=== PATIENT | female | born 1975 | race Caucasian/White ===

== ENCOUNTER 2016-03-19 17:07 | Emergency (ER) | payer MEDICAID ==
[2016-03-19 17:16] VITALS: BP 104/73; PULSE 100; RESP 16; TEMP 98.2; O2SAT 94
--- NOTE | 2016-03-19 17:40 | EDPHY ---
H & P Time Seen by Provider: 03/19/16 17:19 HPI/ROS: CHIEF COMPLAINT: tooth pain HISTORY OF PRESENT ILLNESS: 40-year-old female presents emergency department complaining of right lower tooth pain. Patient states she was eating yesterday and her tooth broke. She reports ibuprofen is not helping. Patient states she has an appointment with [facility] in 4 days. No fevers or chills. Smoking Status: Heavy smoker Physical Exam: GEN: Awake, alert, oriented, no acute distress RESP: nl resp effort Poor dental hygiene, posterior bottom, 2nd from back, right-sided molar with crack, no evidence of abscess, no bleeding, no trismus, no facial swelling Constitutional: Initial Vital Signs Temperature (C) 36.8 C 03/19/16 17:14 Heart Rate 100 03/19/16 17:14 Respiratory Rate 16 03/19/16 17:14 Blood Pressure 104/73 03/19/16 17:14 O2 Sat (%) 94 03/19/16 17:14 O2 Delivery Mode Room Air Allergies/Adverse Reactions: Penicillins Allergy (Intermediate, Verified 03/19/16 17:12) Hives Home Medications: Medication Instructions Recorded Acyclovir [Zovirax] 800 mg PO 5XD #35 tab 08/26/15 Ambien 08/26/15 Ativan 08/26/15 [place] Carbonate 08/26/15 Potassium 08/26/15 Seroquel 08/26/15 risperiDONE 08/26/15 Clindamycin HCl [Clindamycin] 300 mg PO TID #30 cap 03/19/16 MDM/Departure - Depart Disposition: Home, Routine, Self-Care Clinical Impression: Broken tooth Qualifiers: Encounter type: initial encounter Fracture type: closed Qualifier Code: ( S02.5XXA) Fracture of tooth (traumatic), initial encounter for closed fracture Condition: Good Instructions: Toothache (ED), Clindamycin (By mouth), Hydrocodone/ Acetaminophen (By mouth) Additional Instructions: Take 600 mg of ibuprofen every 8 hours with food, take antibiotics as prescribed , take 1 [place] every 8 hours as needed for severe pain. Warm compresses to your face. Follow-up at [facility] at 1st available appointment. You will not be given any more pain medication in the emergency department. Stop smoking. Prescriptions: Clindamycin HCl [Clindamycin] 300 mg PO TID #30 cap Referrals: NONE *PRIMARY CARE P,. [Primary Care Provider] - As per Instructions
[2016-03-19] MEDS ORDERED: HYDROCOD/APAP 5/325 PREPACK#6 BTL TAKEHOME ONE (17:49)
[2016-03-19] MEDS ORDERED: CLINDAMYCIN 150MG PREPACK#6 BTL TAKEHOME ONE (17:49)
== END 2016-03-19 17:59 | disposition home or self-care (01) ==
DX: K03.81 Cracked tooth (principal); F17.200 Nicotine dependence, unspecified, uncomplicated

== ENCOUNTER 2016-04-21 12:32 | Emergency (ER) | payer MEDICAID ==
[2016-04-21 12:46] VITALS: PULSE 80; RESP 16
--- NOTE | 2016-04-21 13:06 | EDPHY ---
H & P Time Seen by Provider: 04/21/16 12:53 HPI/ROS: Chief complaint. Dental pain HPI. Patient is a 40-year-old female with 2 day history of right lower jaw tooth pain. She states that she was eating and then cracked her tooth. She has an appointment on Sunday with [facility] for repair. She tells me they recommended she come to the emergency department today for pain medication and antibiotics. No fever. She has had multiple similar symptoms before with broken teeth that she relates to having an eating disorder. She has been seen in our emergency department on March 19, December 11 of November 04 for same complaints. ROS Constitutional. no fever/chills, no weakness Eyes. no problems with vision ENT. Right lower tooth pain Cardiovascular. no chest pain Respiratory. no shortness of breath, no cough Abdominal. no abdominal pain, no nausea/vomiting, no diarrhea . no problems urinating MS. no calf pain/swelling, no neck/back pain, no joint pain Skin. no rash Lymph. no swollen glands Neuro. no headache, no dizziness, no difficulty walking or with speech Past Medical/Surgical History: Anxiety, depression, PTSD, bipolar, bulimia, chronic pain Social History: Single, daily smoker, no alcohol Smoking Status: Heavy smoker Physical Exam: General Appearance: Alert well-developed female mild distress vital signs are stable. Afebrile Eyes: Pupils equal and round no pallor or injection. ENT, pharynx without injection. Mucous membranes are moist. Widespread tooth decay. Posterior right lower molar is tender to palpation. I do not see an obvious crack in the tooth. There is no abscess either by palpation or inspection. It is tender to percussion with a tongue depressor Respiratory: There are no retractions, lungs are clear to auscultation. Cardiovascular: Regular rate and rhythm. Gastrointestinal: Abdomen is soft and nontender, no masses, bowel sounds normal. Neurological: Awake and alert, sensory and motor exams grossly normal. Skin: Warm and dry, no rashes. Musculoskeletal: Neck is supple nontender. Extremities symmetrical, full range of motion. Psychiatric: Patient is oriented X 3, there is no agitation. Constitutional: Initial Vital Signs Temperature (C) 36.6 C 04/21/16 12:37 Heart Rate 80 04/21/16 12:37 Respiratory Rate 16 04/21/16 12:37 Blood Pressure 100/69 04/21/16 12:37 O2 Sat (%) 96 04/21/16 12:37 O2 Delivery Mode Room Air Allergies/Adverse Reactions: Penicillins Allergy (Intermediate, Verified 04/21/16 12:36) Hives Home Medications: Medication Instructions Recorded Acyclovir [Zovirax] 800 mg PO 5XD #35 tab 08/26/15 Ambien 08/26/15 Ativan 08/26/15 [place] Carbonate 08/26/15 Potassium 08/26/15 Seroquel 08/26/15 risperiDONE 08/26/15 Clindamycin HCl [Clindamycin] 300 mg PO TID #30 cap 03/19/16 Clindamycin HCl [Clindamycin] 300 mg PO TID #30 cap 04/21/16 Hydrocodone/APAP 5/325 [[place] 1 each PO Q4-6PRN PRN #14 tab 04/21/16 5/325 (*)] Medical Decision Making ED Course/Re-evaluation: The patient remained stable. The patient and I discussed treatment plan including antibiotics as well as ibuprofen and hydrocodone. We discussed importance of follow-up with dentist on Sunday. She expresses understanding and agreement Differential Diagnosis: I considered abscess, dental caries, pulp infection Departure - Departure Disposition: Home, Routine, Self-Care Clinical Impression: Broken tooth Qualifiers: Encounter type: initial encounter Fracture type: closed Qualified Code(s): S02.5XXA - Fracture of tooth (traumatic), initial encounter for closed fracture Condition: Good Instructions: Toothache (ED) Additional Instructions: Hydrocodone as needed for pain. Clindamycin as antibiotic. Return over the weekend for worsening symptoms including fever or swelling. Keep follow-up appointment with [facility] on Sunday Referrals: NOT,SURE [Other] - As per Instructions [facility] [Outside] - As per Instructions Prescriptions: Clindamycin HCl [Clindamycin] 300 mg PO TID #30 cap Hydrocodone/APAP 5/325 [[place] 5/325 (*)] 1 each PO Q4-6PRN PRN #14 tab PRN Reason: Pain, Moderate
[2016-04-21 13:31] VITALS: BP 128/78; TEMP 98.4; O2SAT 94
== END 2016-04-21 13:30 | disposition home or self-care (01) ==
DX: K03.81 Cracked tooth (principal); F17.200 Nicotine dependence, unspecified, uncomplicated

== ENCOUNTER 2016-04-23 09:57 | Emergency (ER) | payer MEDICAID ==
[2016-04-23 10:15] VITALS: BP 98/66; PULSE 102; RESP 20; TEMP 98.6; O2SAT 95
[2016-04-23] MEDS ORDERED: ACETAMINOPHEN 325 MG TAB PO ONE (11:09)
[2016-04-23] MEDS ORDERED: IBUPROFEN 600 MG TAB PO ONE (11:09)
--- NOTE | 2016-04-23 11:12 | EDPHY ---
H & P Smoking Status: Heavy smoker Time Seen by Provider: 04/23/16 11:09 HPI/ROS: CHIEF COMPLAINT: toothache HISTORY OF PRESENT ILLNESS: 40-year-old female presents emergency department requesting pain medications for a toothache. Patient was seen 2 days in the emergency department complaining of right lower molar pain. She was given clindamycin and 14 [place]. Patient returns today reporting a new toothache on the left in the place where she had a tooth removed 1 month ago. Patient reports an abscess. She reports chills no fevers. No difficulty swallowing. Patient denies neck pain. REVIEW OF SYSTEMS: A comprehensive 10 point review of systems is otherwise negative aside from elements mentioned in the history of present illness. (Poornima Bruce) Physical Exam: General: Alert, nontoxic. ENT: Oropharynx without erythema or edema. There is no exudate. No tonsillar hypertrophy. No asymmetry. The uvula is midline. No elevation of tongue. There is no hoarseness. No drooling, patient has good control of their oral secretions. No trismus. No stridor. Poor dental hygiene, no evidence of dental abscess, no gingival swelling, or erythema. Respiratory: No distress Neurological: no meningismus. Skin: No rashes. (Poornima Bruce) Constitutional: Initial Vital Signs Temperature (C) 37 C 04/23/16 10:10 Heart Rate 102 H 04/23/16 10:10 Respiratory Rate 20 04/23/16 10:10 Blood Pressure 98/66 L 04/23/16 10:10 O2 Sat (%) 95 04/23/16 10:10 O2 Delivery Mode Room Air Allergies/Adverse Reactions: Penicillins Allergy (Intermediate, Verified 04/23/16 10:12) Hives Home Medications: Medication Instructions Recorded Acyclovir [Zovirax] 800 mg PO 5XD #35 tab 08/26/15 Ambien 08/26/15 Ativan 08/26/15 [place] Carbonate 08/26/15 Potassium 08/26/15 Seroquel 08/26/15 risperiDONE 08/26/15 Clindamycin HCl [Clindamycin] 300 mg PO TID #30 cap 03/19/16 Clindamycin HCl [Clindamycin] 300 mg PO TID #30 cap 04/21/16 Hydrocodone/APAP 5/325 [[place] 1 each PO Q4-6PRN PRN #14 tab 04/21/16 5/325 (*)] MDM/Departure - MDM ED Course/Re-evaluation: I offered to perform a nerve dental block for the patient's discomfort, she is refusing this, reports she does not like needles. Patient has no of abscess or infection, no facial swelling, no difficulty swallowing. She is afebrile. I have recommended she continue taking her antibiotics that were prescribed 2 days ago and follow up with her dentist as scheduled tomorrow. (Poornima Bruce) I did not see this patient she was in the emergency department. However her care was discussed with the nurse practitioner while the patient was in the department. I agree with treatment plan management (Usman Mathis) - Depart Disposition: Home, Routine, Self-Care Clinical Impression: Toothache Condition: Good Instructions: Toothache (ED) Additional Instructions: Take 400 mg of ibuprofen every 8 hours with food, take 650 mg of Tylenol on top of this every 8 hours. Warm compresses to your face multiple times a day for 5- 10 minutes. Follow up with the dentist as scheduled tomorrow. Continue taking your antibiotics. Return to the emergency department for facial swelling, difficulty swallowing, any other questions or concerns. Referrals: NONE *PRIMARY CARE P,. [Primary Care Provider] - As per Instructions
== END 2016-04-23 11:13 | disposition home or self-care (01) ==
DX: K08.89 Other specified disorders of teeth and supporting structures (principal)

== ENCOUNTER 2016-05-30 07:52 | Observation (INO) | payer MEDICAID ==
[2016-05-30] MEDS ORDERED: IPRATROPIUM/ALBUTEROL 3 ML DEYVIAL IH ONE (08:09)
[2016-05-30] MEDS ORDERED: AZITHROMYCIN 250 MG TAB PO ONE (08:09)
--- NOTE | 2016-05-30 08:12 | EDPHY ---
H & P Stated Complaint: SOB, Right Flank Pain Time Seen by Provider: 05/30/16 08:03 HPI/ROS: CHIEF COMPLAINT: Cough HISTORY OF PRESENT ILLNESS: Patient is a 41-year-old female who comes to the emergency department complaining of a cough and now right-sided rib pain that she contributes to coughing hard. She denies any falls. She does smoke. She has not had any leg swelling or pain. No recent travel. No recent procedures. She is not on any hormones. She does take methadone daily for chronic back pain. She does complain of mild shortness of breath. She denies history of asthma or COPD. She does have history of schizophrenia and bulimia. REVIEW OF SYSTEMS: Constitutional: denies: chills, fever, recent illness, recent injury EENTM: denies: blurred vision, double vision, nose congestion Respiratory: See HPI Cardiac: denies: chest pain, irregular heart rate, lightheadedness, palpitations Gastrointestinal/Abdominal: denies: abdominal pain, diarrhea, nausea, vomiting, blood streaked stools Genitourinary: denies: dysuria, frequency, hematuria, pain Musculoskeletal: denies: joint pain, muscle pain Skin: denies: lesions, rash, jaundice, bruising Neurological: denies: headache, numbness, paresthesia, tingling, dizziness, weakness Hematologic/Lymphatic: denies: blood clots, easy bleeding, easy bruising Immunologic/allergic: denies: HIV/AIDS, transplant EXAM: GENERAL: Well-appearing, well-nourished and in no acute distress. HEAD: Atraumatic, normocephalic. EYES: Pupils equal round and reactive to light, extraocular movements intact, sclera anicteric, conjunctiva are normal. ENT: TMs normal, nares patent, oropharynx clear without exudates. Moist mucous membranes. NECK: Normal range of motion, supple without lymphadenopathy or JVD. LUNGS: Breath sounds clear to auscultation bilaterally and equal. No wheezes rales or rhonchi. HEART: Regular rate and rhythm without murmurs, rubs or gallops. ABDOMEN: Soft, nontender, normoactive bowel sounds. No guarding, no rebound. No masses appreciated. BACK: No CVA tenderness, no spinal tenderness, step-offs or deformities EXTREMITIES: Normal range of motion, no pitting or edema. No clubbing or cyanosis. NEUROLOGICAL: Cranial nerves II through XII grossly intact. Normal speech, normal gait. 5/5 strength, normal movement in all extremities, normal sensation PSYCH: Normal mood, normal affect. SKIN: Warm, dry, normal turgor, no visible rashes or lesions. Source: Patient Exam Limitations: No limitations - Personal History LMP (Females 10-55): Over 28 Days Ago Current Tetanus Diphtheria and Acellular Pertussis (TDAP): Yes Tetanus Vaccine Date: 2008 - Medical/Surgical History Hx Asthma: No Hx Chronic Respiratory Disease: No Hx Diabetes: No Hx Cardiac Disease: No Hx Renal Disease: No Hx Cirrhosis: No Hx Alcoholism: No Hx HIV/AIDS: No Hx Splenectomy or Spleen Trauma: No Other PMH: anxiety, depression, low potassium. tubal ligation, PTSD, BIPolar, bulemia, chronic pain - Family History Significant Family History: No pertinent family hx - Social History Smoking Status: Heavy smoker Alcohol Use: Sober Drug Use: None Constitutional: Initial Vital Signs Temperature (C) 37.5 C 05/30/16 07:52 Heart Rate 124 H 05/30/16 07:52 Respiratory Rate 18 05/30/16 07:52 Blood Pressure 91/67 L 05/30/16 07:52 O2 Sat (%) 92 05/30/16 07:52 O2 Delivery Mode Nasal [place] O2 (L/minute) 2 Allergies/Adverse Reactions: Penicillins Allergy (Intermediate, Verified 04/23/16 10:12) Hives Home Medications: Medication Instructions Recorded LORazepam [Ativan (*)] 0.5 mg PO TID 08/26/15 [place] Carbonate ER [Eskalith Cr 450 mg PO HS 08/26/15 450 mg (*)] Potassium Cl [Klor-Con 20 meq (*)] 40 meq PO BID 08/26/15 Zolpidem Tartrate [Ambien 5MG (*)] 10 mg PO HS 08/26/15 risperiDONE [Risperdal 1mg (*)] 2 mg PO BID 08/26/15 Benztropine Mesylate [Cogentin 3 mg PO HS 05/30/16 (RX)] Methadone HCl 40 mg PO HS 05/30/16 QUEtiapine FUMARATE [Seroquel 100 300 mg PO HS 05/30/16 mg (*)] Quetiapine Fumarate [Seroquel Xr] 300 mg PO HS 05/30/16 oxyCODONE IR [Oxycodone Ir (*)] 10 mg PO TID 05/30/16 Medical Decision Making - Diagnostics Imaging Results: Imaging Impressions Chest X-Ray 05/30/16 08:09 Impression: 1. Moderate consolidation/pneumonia inferior aspect right middle lobe with patchy infiltrates right lower lobe. Chest/Thorax CTA 05/30/16 09:18 Impression: 1. There is no CT evidence of pulmonary artery thromboemboli. 2. Dense consolidation of the anterobasilar segment of the right lower lobe with patchy areas of alveolar disease in the posterior basilar and posterior lateral segments of the right lower lobe, with some hypodense material (mucoid impaction) seen within the caudal aspect of the right mainstem bronchus extending into the right lower lobe bronchi contributing to associated atelectatic changes (pulmonology consultation advised). There is also some mild reactive right hilar and subcarinal lymphadenitis for which follow-up is recommended. 3. Hepatic steatosis. 4. Small hiatal hernia with some mild distal thoracic esophageal wall thickening. Findings and recommendations were discussed with ROLANDO NIXON MD at 11:09 am, on 05/30/2016. Imaging: Discussed imaging studies w/ operations administrator Radiologist ED Course/Re-evaluation: We discussed the x-ray results. It is difficult to tell if this is pneumonia versus some overlying effusion or PE. I will obtain a CT scan. She is at risk with her smoking history. Antibiotics have been given and sepsis protocol initiated. We discussed the CT results. The patient may require bronchoscopy to relief from mucous plugging. She has been given antibiotics. 11:30 a.m. I discussed the case with Hermila who will accept for Dr. Delaney. Differential Diagnosis: Partial list of the Differential diagnosis considered include but were not limited to; pneumonia, bronchitis, PE, pleural effusion, and although unlikely based on the history and physical exam, I also considered acute coronary disease , pneumothorax,. - Data Points Laboratory Results: Laboratory Results 05/30/16 09:34 05/30/16 09:34 05/30/16 05/30/16 05/30/16 11:00 09:34 09:34 WBC RBC Hgb Hct MCV MCH MCHC RDW Plt Count MPV Neut % (Auto) Lymph % (Auto) [place] % (Auto) Eos % (Auto) Baso % (Auto) Nucleat RBC Rel Count Absolute Neuts (auto) Absolute Lymphs (auto) Absolute Monos (auto) Absolute Eos (auto) Absolute Basos (auto) Absolute Nucleated RBC Immature Gran % Immature Gran # PT 15.9 SEC H SEC (12.0-15.0) INR 1.27 H (0.83-1.16) APTT 28.7 SEC SEC (23.0-38.0) VBG Lactic Acid 1.5 mmol/L mmol/L 1.0 mmol/L mmol/L (0.7-2.1) (0.7-2.1) Sodium Potassium Chloride Carbon Dioxide Anion Gap BUN Creatinine Estimated GFR Glucose Calcium Total Bilirubin 05/30/16 05/30/16 09:34 09:34 WBC 14.43 10^3/uL H 10^3/uL (3.80-9.50) RBC 4.21 10^6/uL 10^6/uL (4.18-5.33) Hgb 12.0 g/dL L g/dL (12.6-16.3) Hct 36.9 % L % (38.0-47.0) MCV 87.6 fL fL (81.5-99.8) MCH 28.5 pg pg (27.9-34.1) MCHC 32.5 g/dL g/dL (32.4-36.7) RDW 12.5 % % (11.5-15.2) Plt Count 366 10^3/uL 10^3/uL (150-400) MPV 9.0 fL fL (8.7-11.7) Neut % (Auto) 85.6 % H % (39.3-74.2) Lymph % (Auto) 4.4 % L % (15.0-45.0) [place] % (Auto) 8.9 % % (4.5-13.0) Eos % (Auto) 0.2 % L % (0.6-7.6) Baso % (Auto) 0.3 % % (0.3-1.7) Nucleat RBC Rel Count 0.0 % % (0.0-0.2) Absolute Neuts (auto) 12.35 10^3/uL H 10^3/uL (1.70-6.50) Absolute Lymphs (auto) 0.63 10^3/uL L 10^3/uL (1.00-3.00) Absolute Monos (auto) 1.29 10^3/uL H 10^3/uL (0.30-0.80) Absolute Eos (auto) 0.03 10^3/uL 10^3/uL (0.03-0.40) Absolute Basos (auto) 0.04 10^3/uL 10^3/uL (0.02-0.10) Absolute Nucleated RBC 0.00 10^3/uL 10^3/uL (0-0.01) Immature Gran % 0.6 % % (0.0-1.1) Immature Gran # 0.09 10^3/uL 10^3/uL (0.00-0.10) PT INR APTT VBG Lactic Acid Sodium 136 mEq/L mEq/L (134-144) Potassium 4.0 mEq/L mEq/L (3.5-5.2) Chloride 102 mEq/L mEq/L (97-110) Carbon Dioxide 22 mEq/l mEq/l (22-31) Anion Gap 12 mEq/L mEq/L (8-16) BUN 6 mg/dL L mg/dL (7-23) Creatinine 0.6 mg/dL mg/dL (0.6-1.0) Estimated GFR > 60 Glucose 125 mg/dL H mg/dL (70-100) Calcium 9.1 mg/dL mg/dL (8.5-10.4) Total Bilirubin 0.9 mg/dL mg/dL (0.1-1.4) Medications Given: Discontinued Medications Albuterol/Ipratropium (Duoneb) 3 ml IH EDNOW ONE Stop: 05/30/16 08:10 Last Admin: 05/30/16 08:19 Dose: 3 ml Azithromycin (Zithromax) 500 mg PO EDNOW ONE PRN Reason: Protocol Stop: 05/30/16 08:10 Last Admin: 05/30/16 08:18 Dose: 500 mg Ceftriaxone Sodium/Dextrose (Rocephin 1 Gm (Premix)) 50 mls @ 100 mls/hr IV EDNOW ONE PRN Reason: Protocol Stop: 05/30/16 09:47 Last Admin: 05/30/16 10:04 Dose: 50 mls Sodium Chloride (Ns) 1,600 mls @ 3,200 mls/hr 30 ml/kg infuse over 30 min ( 1600 ml) IV EDNOW ONE Stop: 05/30/16 09:48 Last Admin: 05/30/16 10:04 Dose: 1,600 mls Oxycodone HCl (Oxycodone Ir) 10 mg PO TID MORGAN Stop: 06/09/16 13:59 Last Admin: 05/30/16 14:02 Dose: 10 mg Oxycodone/Acetaminophen (Percocet 5/325) 2 tab PO EDNOW ONE Stop: 05/30/16 09:22 Last Admin: 05/30/16 09:42 Dose: 2 tab Departure - Departure Disposition: [facility] Clinical Impression: Bulimia, Bipolar affective disorder, manic, severe Pneumonia Qualifiers: Pneumonia type: due to unspecified organism Laterality: right Lung location: lower lobe of lung Qualified Code(s): J18.1 - Lobar pneumonia, unspecified organism Sepsis Qualifiers: Sepsis type: sepsis due to unspecified organism Qualified Code(s): A41.9 - Sepsis, unspecified organism Condition: Fair
[2016-05-30] MEDS ORDERED: NS 1,600 ML IV ONE (09:19)
[2016-05-30] MEDS ORDERED: OXYCODONE/APAP 5/325 TAB PO ONE (09:21)
[2016-05-30 09:51] LABS: % IMMATURE GRANULYOCYTES 0.6 % (0.0-1.1); ABSOLUTE IMMATURE GRANULOCYTES 0.09 10^3/uL (0.00-0.10); ADD DIFF? NO; ADD MORPH? NO; ADD SCAN? NO; ATYPICAL LYMPHOCYTE FLAG 0 (0-99); FRAGMENT RBC FLAG 0 (0-99); HEMATOCRIT 36.9 % (38.0-47.0); LEFT SHIFT FLG 0 (0-99); LIPEMIA HEMOLYSIS FLAG 80 (0-99); MEAN CELL HEMOGLOBIN 28.5 pg (27.9-34.1); MEAN CELL HEMOGLOBIN CONCENTR. 32.5 g/dL (32.4-36.7); MEAN CELL VOLUME 87.6 fL (81.5-99.8); PLATELET CLUMPS FLAG 0 (0-99); PLATELET COUNT 366 10^3/uL (150-400); RED BLOOD CELL COUNT 4.21 10^6/uL (4.18-5.33); RED CELL DISTRIBUTION WIDTH 12.5 % (11.5-15.2)
[2016-05-30 09:52] LABS: APTT 28.7 SEC (23.0-38.0)
[2016-05-30 10:03] LABS: INR 1.27 (0.83-1.16); PROTIME(PATIENT) 15.9 SEC (12.0-15.0)
[2016-05-30] MEDS ORDERED: IOPAMIDOL (ISOVUE 370) 100 ML BTL IV ONE (10:15)
[2016-05-30 10:27] LABS: ANION GAP 12 mEq/L (8-16); BILIRUBIN,TOTAL 0.9 mg/dL (0.1-1.4); CALCIUM 9.1 mg/dL (8.5-10.4); CARBON DIOXIDE 22 mEq/l (22-31); CHLORIDE 102 mEq/L (97-110); CREATININE 0.6 mg/dL (0.6-1.0); GLOMERULAR FILTRATION RATE > 60; GLUCOSE 125 mg/dL (70-100); SODIUM 136 mEq/L (134-144)
--- NOTE | 2016-05-30 13:52 | PDGENHP ---
History and Physical - Chief Complaint cough and shortness of breath - History of Present Illness 41 y/o female smoker with extensive psychiatric history and chronic pain who presented to the ED today with cough and shortness of breath. Her symptoms came on suddenly this morning and were associated with severe right sided "rib pain" . She denies any trauma. She denies any fevers but did have some the subjective chills last night. She states that she also has a sore throat. She denies any loss of consciousness or aspiration events. As per report she has not experienced any leg swelling or pain. She denies recent travel. She denies asthma, COPD, and cardiovascular disease. She takes daily methadone for chronic back pain. History Information - Allergies/Home Medication List Allergies/Adverse Reactions: Penicillins Allergy (Intermediate, Verified 04/23/16 10:12) Hives Home Medications: LORazepam [Ativan (*)] 0.5 mg PO TID 08/26/15 [Last Taken 05/29/16 21:00] [place] Carbonate ER [Eskalith Cr 450 mg (*)] 450 mg PO HS 08/26/15 [Last Taken 05/29/16] Potassium Cl [Klor-Con 20 meq (*)] 40 meq PO BID 08/26/15 [Last Taken Unknown] Zolpidem Tartrate [Ambien 5MG (*)] 10 mg PO HS 08/26/15 [Last Taken 05/29/16] risperiDONE [Risperdal 1mg (*)] 2 mg PO BID 08/26/15 [Last Taken 05/29/16 21:00] Benztropine Mesylate [Cogentin (RX)] 3 mg PO HS 05/30/16 [Last Taken Unknown] Methadone HCl 40 mg PO HS 05/30/16 [Last Taken 05/29/16] QUEtiapine FUMARATE [Seroquel 100 mg (*)] 300 mg PO HS 05/30/16 [Last Taken ] Quetiapine Fumarate [Seroquel Xr] 300 mg PO HS 05/30/16 [Last Taken 05/29/16] oxyCODONE IR [Oxycodone Ir (*)] 10 mg PO TID 05/30/16 [Last Taken 05/29/16 21:00 ] I have personally reviewed and updated: family history, medical history, social history, surgical history Past Medical History: anxiety, depression, PTSD, bipolar, bulemia, tubal ligation, chronic pain, hospitalizations for hypokalemia - Social History Smoking Status: Heavy smoker Alcohol Use: Sober Drug Use: None Review of Systems ROS: 10pt was reviewed & negative except for what was stated in HPI & below Physical Exam Temp Pulse Resp BP Pulse Ox 36.2 C 95 16 93/60 L 97 05/30/16 12:33 05/30/16 12:33 05/30/16 12:33 05/30/16 12:33 05/30/16 12:33 O2 (L/minute) 2 Constitutional: no apparent distress, appears nourished, not in pain Eyes: PERRL, anicteric sclera, EOMI Ears, Nose, Mouth, Throat: moist mucous membranes, hearing normal, ears appear normal, no oral mucosal ulcers Cardiovascular: regular rate and rhythym, no murmur, rub, or gallop, No edema Respiratory: no respiratory distress, no rales or rhonchi, clear to auscultation , No rhonchi Gastrointestinal: normoactive bowel sounds, soft, non-tender abdomen, no palpable masses, No guarding, No rebound Genitourinary: no bladder fullness, no bladder tenderness Skin: warm, normal color, no rashes or abrasions, no fluctuance, no induration, No mottled Musculoskeletal: full muscle strength, no muscle tenderness, normal joint ROM, no joint effusions Neurologic: AAOx3, CN II-XII Intact, No facial droop Psychiatric: anxious, agitated Lymph, Heme, Immunologic: no cervical LAD, no supraclavicular LAD Lab Data & Imaging Review 05/30/16 09:34 05/30/16 09:34 WBC 14.43 10^3/uL (3.80-9.50) H 05/30/16 09:34 RBC 4.21 10^6/uL (4.18-5.33) 05/30/16 09:34 Hgb 12.0 g/dL (12.6-16.3) L 05/30/16 09:34 Hct 36.9 % (38.0-47.0) L 05/30/16 09:34 MCV 87.6 fL (81.5-99.8) 05/30/16 09:34 MCH 28.5 pg (27.9-34.1) 05/30/16 09:34 MCHC 32.5 g/dL (32.4-36.7) 05/30/16 09:34 RDW 12.5 % (11.5-15.2) 05/30/16 09:34 Plt Count 366 10^3/uL (150-400) 05/30/16 09:34 MPV 9.0 fL (8.7-11.7) 05/30/16 09:34 Neut % (Auto) 85.6 % (39.3-74.2) H 05/30/16 09:34 Lymph % (Auto) 4.4 % (15.0-45.0) L 05/30/16 09:34 [place] % (Auto) 8.9 % (4.5-13.0) 05/30/16 09:34 Eos % (Auto) 0.2 % (0.6-7.6) L 05/30/16 09:34 Baso % (Auto) 0.3 % (0.3-1.7) 05/30/16 09:34 Nucleat RBC Rel Count 0.0 % (0.0-0.2) 05/30/16 09:34 Absolute Neuts (auto) 12.35 10^3/uL (1.70-6.50) H 05/30/16 09:34 Absolute Lymphs (auto) 0.63 10^3/uL (1.00-3.00) L 05/30/16 09:34 Absolute Monos (auto) 1.29 10^3/uL (0.30-0.80) H 05/30/16 09:34 Absolute Eos (auto) 0.03 10^3/uL (0.03-0.40) 05/30/16 09:34 Absolute Basos (auto) 0.04 10^3/uL (0.02-0.10) 05/30/16 09:34 Absolute Nucleated RBC 0.00 10^3/uL (0-0.01) 05/30/16 09:34 Immature Gran % 0.6 % (0.0-1.1) 05/30/16 09:34 Immature Gran # 0.09 10^3/uL (0.00-0.10) 05/30/16 09:34 PT 15.9 SEC (12.0-15.0) H 05/30/16 09:34 INR 1.27 (0.83-1.16) H 05/30/16 09:34 APTT 28.7 SEC (23.0-38.0) 05/30/16 09:34 VBG Lactic Acid 1.5 mmol/L (0.7-2.1) 05/30/16 11:00 Sodium 136 mEq/L (134-144) 05/30/16 09:34 Potassium 4.0 mEq/L (3.5-5.2) 05/30/16 09:34 Chloride 102 mEq/L (97-110) 05/30/16 09:34 Carbon Dioxide 22 mEq/l (22-31) 05/30/16 09:34 Anion Gap 12 mEq/L (8-16) 05/30/16 09:34 BUN 6 mg/dL (7-23) L 05/30/16 09:34 Creatinine 0.6 mg/dL (0.6-1.0) 05/30/16 09:34 Estimated GFR > 60 05/30/16 09:34 Glucose 125 mg/dL (70-100) H 05/30/16 09:34 Calcium 9.1 mg/dL (8.5-10.4) 05/30/16 09:34 Total Bilirubin 0.9 mg/dL (0.1-1.4) 05/30/16 09:34 Imaging Review: cta chest reviewed neg or PE Visualized and Interpreted Chest x-ray results: Yes Chest X-Ray results: infiltrate (rll/rml consolidation) Assessment & Plan Assessment: 41 y/o female with history of bipolar and chronic opioid dependency presenting with # cough and shortness of breath in the setting of lobar consolidation and SIRS concerning for Sepsis without signs of severe sepsis or septic shock Suspect community-acquired pneumonia however aspiration is in the differential given her chronic opioid use - continue levofloxacin for now - follow up blood cultures - monitor for signs symptoms of severe sepsis or septic shock # rib pain - most likely due to intense coughing, may be aggravated by chronic back pain, less likely due to cardiovascular disease although smoking hx increases her risk - continue to control pain with Percocet and IV Toradol - patient has drug abuse history, monitor for drug seeking behavior # hypotension - likely due to dehydration - continue IV fluids # anxiety, depression, PTSD, bipolar, bulimia - continue home medications # elevated PT and INR - check LFTs # normocytic anemia - unknown etiology, continue to monitor # hepatic steatosis - follow up with PCP # hiatal hernia - patient is not experiencing GI symptoms at this time, she may be considered for upper endoscopy if she becomes symptomatic
[2016-05-30] MEDS ORDERED: oxyCODONE IR 5 MG TAB PO SCH ×2 (14:00→16:00)
[2016-05-30] MEDS: LORazepam 0.5 MG TAB PO SCH ×2 (14:02→21:23)
[2016-05-30] MEDS ORDERED: ACETAMINOPHEN 325 MG TAB PO PRN (15:36)
[2016-05-30] MEDS ORDERED: KETOROLAC 30 MG/1 ML SDV IVP PRN (15:37)
[2016-05-30] MEDS ORDERED: LORazepam 0.5 MG TAB PO SCH (16:00)
[2016-05-30] MEDS: POTASSIUM CL 20 MEQ/15 ML UDCUP PO SCH (17:45)
[2016-05-30] MEDS ORDERED: POTASSIUM CL 20 MEQ TAB PO SCH ×2 (18:00→21:00)
[2016-05-30] MEDS: oxyCODONE IR 5 MG TAB PO SCH (20:10)
[2016-05-30] MEDS ORDERED: QUEtiapine FUMARATE 100 MG TAB PO SCH (21:00)
[2016-05-30] MEDS ORDERED: LITHIUM CARBONATE ER 450 MG TAB PO SCH (21:00)
[2016-05-30] MEDS ORDERED: METHADONE HCL 10 MG TAB PO SCH (21:00)
[2016-05-30] MEDS ORDERED: METHADONE HCL PO SCH (21:00)
[2016-05-30] MEDS ORDERED: QUETIAPINE FUMARATE 300 MG PO SCH (21:00)
[2016-05-30] MEDS ORDERED: BENZTROPINE MESYLATE 1 MG TAB PO SCH (21:00)
[2016-05-30] MEDS ORDERED: Quetiapine Fumarate [Seroquel Xr] 300 MG PO SCH (21:00)
[2016-05-30] MEDS: risperiDONE 1 MG TAB PO SCH (21:23)
[2016-05-30] MEDS: guaiFENesin 600 MG TAB.ER PO SCH (21:24)
[2016-05-30] MEDS: ZOLPIDEM TARTRATE 5 MG TAB PO SCH (21:40)
[2016-05-31] MEDS: LORazepam 0.5 MG TAB PO SCH ×2 (00:10→09:06)
[2016-05-31] MEDS: ZOLPIDEM TARTRATE 5 MG TAB PO SCH (00:10)
[2016-05-31] MEDS ORDERED: oxyCODONE IR 5 MG TAB PO ONE (05:00)
[2016-05-31] MEDS ORDERED: LORazepam 1 MG TAB PO ONE (05:00)
[2016-05-31 05:30] LABS: % IMMATURE GRANULYOCYTES 0.4 % (0.0-1.1); ABSOLUTE IMMATURE GRANULOCYTES 0.05 10^3/uL (0.00-0.10); ADD DIFF? NO; ADD MORPH? NO; ADD SCAN? NO; ATYPICAL LYMPHOCYTE FLAG 0 (0-99); FRAGMENT RBC FLAG 0 (0-99); HEMATOCRIT 39.3 % (38.0-47.0); HEMOGLOBIN 12.4 g/dL (12.6-16.3); LEFT SHIFT FLG 0 (0-99); LIPEMIA HEMOLYSIS FLAG 80 (0-99); MEAN CELL HEMOGLOBIN 28.7 pg (27.9-34.1); MEAN CELL HEMOGLOBIN CONCENTR. 31.6 g/dL (32.4-36.7); MEAN PLATELET VOLUME 9.1 fL (8.7-11.7); PLATELET CLUMPS FLAG 0 (0-99); PLATELET COUNT 437 10^3/uL (150-400); RED BLOOD CELL COUNT 4.32 10^6/uL (4.18-5.33); RED CELL DISTRIBUTION WIDTH 12.5 % (11.5-15.2)
[2016-05-31 05:36] LABS: ALANINE AMINOTRANSFERASE 23 IU/L (9-52); ALBUMIN 3.2 g/dL (3.5-5.0); ALKALINE PHOSPHATASE 121 IU/L (38-126); ANION GAP 13 mEq/L (8-16); ASPARTATE AMINOTRANSFERASE 15 IU/L (14-46); BILIRUBIN,TOTAL 0.8 mg/dL (0.1-1.4); CALCIUM 9.2 mg/dL (8.5-10.4); CARBON DIOXIDE 20 mEq/l (22-31); CHLORIDE 106 mEq/L (97-110); CREATININE 0.6 mg/dL (0.6-1.0); GLOMERULAR FILTRATION RATE > 60; GLUCOSE 98 mg/dL (70-100); POTASSIUM 4.6 mEq/L (3.5-5.2); SODIUM 139 mEq/L (134-144); TOTAL PROTEIN 5.8 g/dL (6.3-8.2)
[2016-05-31] MEDS: risperiDONE 1 MG TAB PO SCH (09:06)
[2016-05-31] MEDS: oxyCODONE IR 5 MG TAB PO SCH (09:06)
[2016-05-31 10:04] VITALS: BP 120/67; PULSE 112; RESP 14; TEMP 98.7; O2SAT 90
[2016-05-31] MEDS: guaiFENesin 600 MG TAB.ER PO SCH (10:45)
[2016-05-31] MEDS: POTASSIUM CL 20 MEQ/15 ML UDCUP PO SCH (10:45)
--- NOTE | 2016-05-31 11:13 | GDS ---
[f rep st] DISCHARGE SUMMARY DISCHARGE DIAGNOSES: 1. Right lower lobe/right middle lobe consolidation, most likely due to community-acquired pneumoni a which is most likely aspiration. 2. Rib pain due to above. 3. Resolved hypotension. 4. History of anxiety, depression, post-traumatic stress disorder, bipolar disorder. 5. History of bulimia, which patient states is in remission. 6. Normocytic anemia. 7. Chronic opioid dependence, on methadone. HOSPITAL COURSE AND STAY BY PROBLEM: Suspected community-acquired pneumonia: The patient presented to the hospital with rib pain. Chest x-ray and CT scan of the chest were done, which confirmed a r ight lower lobe/right middle lobe consolidation. The patient denies any history of aspiration or lo ss of consciousness. She was initially treated with ceftriaxone and azithromycin. On hospital day #1, her right-sided rib pain is improving. Her oxygen saturations have been above 90% on room air a nd she has been afebrile. PHYSICAL EXAM: VITAL SIGNS: On day of discharge, blood pressure 120/67, pulse ranged from 98 to 11 2, respiratory rate 14, O2 saturation 90% on room air, temperature afebrile. GENERAL: No acute dis tress. HEART: S1, S2. LUNGS: Clear. No wheezes, rales, or rhonchi. No respiratory distress. A BDOMEN: Soft. EXTREMITIES: No edema. DIAGNOSTICS: Blood cultures done 05/30/2016 are pending. PERTINENT LABS AND STUDIES: During this hospital stay, CT angio of the chest on 05/30/2016, was neg ative for PE. There was hypodense mucoid impaction, caudal aspect of the right mainstem bronchus in the right lower lobe bronchi, contributing to some atelectatic changes. Refer to report for full d etails. DISCHARGE INSTRUCTIONS: The patient will be discharged from the hospital where I have chosen to tina at her with Omnicef and doxycycline. I chose these antibiotics due to her penicillin allergy as wel l as quinolones being contraindicated in the setting of methadone due to concerns of QT prolongation . She should follow up at [facility] next week with repeat chest x-ray to ensure her pneumonia is improving. If she continues to have a persistent infiltrate, she should be evaluated by Pulmono logy for further recommendations. If she is not improving on her current antibiotic treatment, it m ay be reasonable to consider adding clindamycin to treat for anaerobes. However, I did not do this since, once again, the patient denied any risk for aspiration or periods of oversedation. /[id number]/MODL
== END 2016-05-31 13:05 | disposition home or self-care (01) ==
LOC: EDUNIT# → F3E 12:29
PROVIDERS: ADMIT Family Medicine; ATTEND Family Medicine
DX: J18.9 Pneumonia, unspecified organism (principal); R07.81 Pleurodynia; F31.9 Bipolar disorder, unspecified; F43.10 Post-traumatic stress disorder, unspecified; G89.29 Other chronic pain; F11.20 Opioid dependence, uncomplicated; F17.210 Nicotine dependence, cigarettes, uncomplicated
CPT/HCPCS: 71020; 71275; 96374; 99285; G0378; J0696; J1885; J1956; Q9967

== ENCOUNTER 2016-07-01 08:19 | Emergency (ER) | payer MEDICAID ==
[2016-07-01 08:26] VITALS: BP 99/71; PULSE 101; RESP 16; TEMP 98.6; O2SAT 89
--- NOTE | 2016-07-01 08:32 | EDPHY ---
H & P Stated Complaint: Right sided pain with breathing, coughing,x 2 days, feels like previous PNA Time Seen by Provider: 07/01/16 08:29 HPI/ROS: CHIEF COMPLAINT: Cough, right-sided chest pain HISTORY OF PRESENT ILLNESS: The patient presents to the ED with a 1 day history of a productive cough and right-sided chest pain. The patient has a prior history of pneumonia. She was hospitalized approximately 1 month ago and treated with oral antibiotics. The patient did feel better recover after that episode. She developed recurrent symptoms of right-sided chest pain and cough today. The patient denies additional complaints. She is on a number of medications for her underlying psychiatric disease. She has no complaints of asymmetric calf pain or swelling. During the patient's last hospitalization she did undergo a CT angiogram of her chest which demonstrated no evidence of pulmonary embolism. REVIEW OF SYSTEMS: A comprehensive 10 point review of systems is otherwise negative aside from elements mentioned in the history of present illness. Source: Patient Exam Limitations: No limitations - Personal History LMP (Females 10-55): 15-21 Days Ago Current Tetanus/Diphtheria Vaccine: Unsure Current Tetanus Diphtheria and Acellular Pertussis (TDAP): Unsure Tetanus Vaccine Date: 2008 - Medical/Surgical History Hx Asthma: No Hx Chronic Respiratory Disease: No Hx Diabetes: No Hx Cardiac Disease: No Hx Renal Disease: No Hx Cirrhosis: No Hx Alcoholism: No Hx HIV/AIDS: No Hx Splenectomy or Spleen Trauma: No Other PMH: anxiety, depression, low potassium. tubal ligation, PTSD, BIPolar, bulemia, chronic pain. PNA - Social History Smoking Status: Heavy smoker - Physical Exam Exam: General Appearance: Alert, no distress Eyes: Pupils equal and round no pallor or injection ENT, Mouth: Mucous membranes moist Respiratory: Decreased breath sounds bilaterally, slight rhonchi noted Cardiovascular: Regular rate and rhythm Gastrointestinal: Abdomen is soft and nontender, no masses, bowel sounds normal Neurological: A&O, normal motor function, normal sensory exam, normal cranial nerves Skin: Warm and dry, no rashes Musculoskeletal: Neck is supple nontender Extremities: symmetrical, full range of motion Constitutional: Initial Vital Signs Temperature (C) 37.0 C 07/01/16 08:21 Heart Rate 101 H 07/01/16 08:21 Respiratory Rate 16 07/01/16 08:21 Blood Pressure 99/71 L 07/01/16 08:21 O2 Sat (%) 89 L 07/01/16 08:21 O2 Delivery Mode Room Air Allergies/Adverse Reactions: Penicillins Allergy (Intermediate, Verified 04/23/16 10:12) Hives Home Medications: Medication Instructions Recorded LORazepam [Ativan (*)] 0.5 mg PO TID 08/26/15 [place] Carbonate ER [Eskalith Cr 450 mg PO HS 08/26/15 450 mg (*)] Potassium Cl [Klor-Con 20 meq (*)] 40 meq PO BID 08/26/15 Zolpidem Tartrate [Ambien 5MG (*)] 10 mg PO HS 08/26/15 risperiDONE [Risperdal 1mg (*)] 2 mg PO BID 08/26/15 Benztropine Mesylate [Cogentin] 3 mg PO HS 05/30/16 Methadone HCl 40 mg PO HS 05/30/16 QUEtiapine FUMARATE [Seroquel 100 300 mg PO HS 05/30/16 mg (*)] Quetiapine Fumarate [Seroquel Xr] 300 mg PO HS 05/30/16 Cefdinir [Omnicef (*)] 300 mg PO BID #20 cap 05/31/16 Doxycycline Hyclate 100 mg PO BID #14 capsule 05/31/16 Ibuprofen [Advil] 400 - 600 mg PO Q6 PRN #0 tablet 05/31/16 oxyCODONE IR [Oxycodone Ir (*)] 10 mg PO TID #20 tab 05/31/16 Doxycycline Hyclate 100 mg PO BID #20 tab 07/01/16 Medical Decision Making - Diagnostics Imaging Results: Imaging Impressions Chest X-Ray 07/01/16 08:31 Impression: Incompletely resolved right lower lobe pneumonia and associated pleural effusion. Continued radiographic follow-up is recommended. Nothing acute is identified. ED Course/Re-evaluation: I reviewed the patient's past medical records including her x-ray, CT scan, H&P in discharge summary from May 2016. The patient does have evidence of a improving but persistent pneumonia. Given her complaints of a recurrent productive cough I will restart her on doxycycline. The patient will follow up with her primary care provider. She is discharged home in stable condition. Differential Diagnosis: Differential diagnosis considered includes asthma, bronchitis, pneumonia Departure - Departure Disposition: Home, Routine, Self-Care Clinical Impression: Pneumonia Condition: Good Instructions: Community Acquired Pneumonia (ED) Additional Instructions: 1. Please take antibiotics as directed for next 10 days. 2. Please follow up with your primary care provider for a repeat x-ray in the next 1-2 weeks. Please follow up sooner for any worsening symptoms. 3. Please return to the ED for markedly worsening shortness of breath or other concerns. Referrals: REYNALDO MCCRAY [Other] - As per Instructions Prescriptions: Doxycycline Hyclate 100 mg PO BID #20 tab
== END 2016-07-01 10:13 | disposition home or self-care (01) ==
DX: J18.9 Pneumonia, unspecified organism (principal); F17.200 Nicotine dependence, unspecified, uncomplicated

== ENCOUNTER 2016-09-11 14:59 | Emergency (ER) | payer MEDICAID ==
[2016-09-11 15:07] VITALS: BP 104/69; PULSE 85; RESP 18; TEMP 98.4; O2SAT 94
--- NOTE | 2016-09-11 15:18 | EDPHY ---
H & P Stated Complaint: pt has had recurrent episodes of PNA now with return of r lower cp/cough Time Seen by Provider: 09/11/16 15:10 HPI/ROS: Chief Complaint: Right chest pain, possible pneumonia HPI: 41-year-old woman woke this morning with pain in her right lower lateral chest. Patient states that it feels similar to when she had pneumonia about 2 months ago. Says it hurts to breathe. Also her distally on that side. Has had a mild cough which is productive green sputum. She is a smoker but normally does not have a productive cough. Had some subjective chills yesterday but did not take her temperature. Does not feel as bad as her prior episode. No central chest pain. No shortness of breath. No nausea or vomiting. Last menstrual period was 2 years ago. No abdominal pain. No lightheadedness, no palpitations. ROS: 10 point Review of Systems is negative except as noted in the HPI. PMH: Pneumonia, depression Medications: Seroquel, Ambien, Ativan, potassium Allergies: Penicillin Social History: positive smoking, denies alcohol, no recreational drug use Family History: non-contributory Physical Exam: Gen: Awake, Alert, No Distress HEENT: Nose: no rhinorrhea Eyes: PERRLA, EOMI Mouth: Moist mucosa Neck: Supple, no JVD Chest: She has reproducible chest wall tenderness in the mid axillary line at ribs 5 and 6 reproducing her presenting complaint. There is no step-offs. She is not catching her breath when she takes a breath., lungs clear to auscultation Heart: S1, S2 normal, no murmur Abd: Soft, non-tender, no guarding Back: no CVA tenderness, no midline tenderness Ext: no edema, non-tender Skin: no rash Neuro: CN II-XII intact, Sensation grossly intact, Strength 5/5 in bilateral upper and lower extremities - Personal History LMP (Females 10-55): Post Menopausal Current Tetanus/Diphtheria Vaccine: Yes Tetanus Vaccine Date: 2008 - Medical/Surgical History Hx Asthma: No Hx Chronic Respiratory Disease: No Hx Diabetes: No Hx Cardiac Disease: No Hx Renal Disease: No Hx Cirrhosis: No Hx Alcoholism: No Hx HIV/AIDS: No Hx Splenectomy or Spleen Trauma: No Other PMH: anxiety, depression, low potassium. tubal ligation, PTSD, BIPolar, bulemia, chronic pain. PNA - Social History Smoking Status: Heavy smoker Constitutional: Initial Vital Signs Temperature (C) 36.9 C 09/11/16 15:04 Heart Rate 85 09/11/16 15:04 Respiratory Rate 18 09/11/16 15:04 Blood Pressure 104/69 09/11/16 15:04 O2 Sat (%) 94 09/11/16 15:04 O2 Delivery Mode Room Air Allergies/Adverse Reactions: Penicillins Allergy (Intermediate, Verified 09/11/16 15:02) Hives Home Medications: Medication Instructions Recorded LORazepam [Ativan (*)] 0.5 mg PO TID 08/26/15 Potassium Cl [Klor-Con 20 meq (*)] 40 meq PO BID 08/26/15 Zolpidem Tartrate [Ambien 5MG (*)] 10 mg PO HS 08/26/15 risperiDONE [Risperdal 1mg (*)] 2 mg PO BID 08/26/15 Benztropine Mesylate [Cogentin] 3 mg PO HS 05/30/16 Methadone HCl 40 mg PO HS 05/30/16 QUEtiapine FUMARATE [Seroquel 100 300 mg PO HS 05/30/16 mg (*)] Quetiapine Fumarate [Seroquel Xr] 300 mg PO HS 05/30/16 Ibuprofen [Advil] 400 - 600 mg PO Q6 PRN #0 tablet 05/31/16 oxyCODONE IR [Oxycodone Ir (*)] 10 mg PO TID #20 tab 05/31/16 Medical Decision Making - Diagnostics Imaging Results: Imaging Impressions Chest X-Ray 09/11/16 15:18 Impression: Negative chest. Imaging: I viewed and interpreted images myself ED Course/Re-evaluation: Chest x-ray is negative. Patient is not tachycardic. She is not hypoxemic. She is not tachypneic. She has reproducible chest wall tenderness on examination should return believes producing her pain. No evidence of acute respiratory process, specifically there is no evidence of DVT pneumonia or pneumothorax. Patient is otherwise well-appearing. She has been reassured. She will be discharged with follow up with primary care physician, return for worsening. Departure - Departure Disposition: Home, Routine, Self-Care Clinical Impression: Chest wall muscle strain Condition: Good Instructions: Chest Wall Pain (ED) Additional Instructions: You may take ibuprofen, 600 mg 3 times a day for pain. Follow up with primary care physician in 2-3 days if symptoms are not improving. Return to the emergency depart for increasing chest pain, shortness of breath, fevers, chills, or any other concerns. Referrals: Lauren Roberts PA [Primary Care Provider] - As per Instructions
== END 2016-09-11 16:26 | disposition home or self-care (01) ==
DX: S29.011A Strain of muscle and tendon of front wall of thorax, initial encounter (principal); F17.200 Nicotine dependence, unspecified, uncomplicated; X58.XXXA Exposure to other specified factors, initial encounter

== ENCOUNTER 2016-12-13 07:49 | Emergency (ER) | payer MEDICAID ==
[2016-12-13 07:54] VITALS: TEMP 97.7
--- NOTE | 2016-12-13 07:59 | EDPHY ---
H & P Stated Complaint: Weakness Time Seen by Provider: 12/13/16 07:58 HPI/ROS: CHIEF COMPLAINT: Weakness HISTORY OF PRESENT ILLNESS: The patient has a history of chronic pain syndrome , psychiatric illness and bulimia. She presents to the ED with weakness and symptoms that she feels are consistent with recurrent hypokalemia. She reportedly has been off of her potassium supplementation for the past 2 weeks. She reports she stop taking the medications because she "felt sick." She reports symptoms of chronic intermittent vomiting and diarrhea over the past 2 weeks. The patient is currently taking Risperdal, Seroquel and Ativan. REVIEW OF SYSTEMS: A comprehensive 10 point review of systems is otherwise negative aside from elements mentioned in the history of present illness. Source: Patient - Personal History LMP (Females 10-55): Over 28 Days Ago Current Tetanus/Diphtheria Vaccine: Yes Tetanus Vaccine Date: 2008 - Medical/Surgical History Hx Asthma: No Hx Chronic Respiratory Disease: No Hx Diabetes: No Hx Cardiac Disease: No Hx Renal Disease: No Hx Cirrhosis: No Hx Alcoholism: No Hx HIV/AIDS: No Hx Splenectomy or Spleen Trauma: No Other PMH: anxiety, depression, low potassium. tubal ligation, PTSD, BIPolar, bulemia, chronic pain. PNA - Social History Smoking Status: Heavy smoker - Physical Exam Exam: General Appearance: Thin female, no acute distress Eyes: Pupils equal and round no pallor or injection ENT, Mouth: Mucous membranes moist Respiratory: There are no retractions, lungs are clear to auscultation Cardiovascular: Regular rate and rhythm Gastrointestinal: Abdomen is soft and nontender, no masses, bowel sounds normal Neurological: A&O, normal motor function, normal sensory exam, normal cranial nerves Skin: Warm and dry, no rashes Musculoskeletal: Neck is supple nontender Extremities: symmetrical, full range of motion Psychiatric: Patient is oriented X 3, there is no agitation, denies suicidal or homicidal ideation Constitutional: Initial Vital Signs Temperature (C) 36.5 C 12/13/16 07:52 Heart Rate 98 12/13/16 07:52 Respiratory Rate 20 12/13/16 07:52 Blood Pressure 93/72 L 12/13/16 07:52 O2 Sat (%) 93 12/13/16 07:52 O2 Delivery Mode Room Air Allergies/Adverse Reactions: Penicillins Allergy (Intermediate, Verified 12/13/16 07:50) Hives Home Medications: Medication Instructions Recorded LORazepam [Ativan (*)] 0.5 mg PO TID 08/26/15 Potassium Cl [Klor-Con 20 meq (*)] 40 meq PO BID 08/26/15 Zolpidem Tartrate [Ambien 5MG (*)] 10 mg PO HS 08/26/15 risperiDONE [Risperdal 1mg (*)] 2 mg PO BID 08/26/15 Benztropine Mesylate [Cogentin] 3 mg PO HS 05/30/16 Methadone HCl 40 mg PO HS 05/30/16 QUEtiapine FUMARATE [Seroquel 100 300 mg PO HS 05/30/16 mg (*)] Quetiapine Fumarate [Seroquel Xr] 300 mg PO HS 05/30/16 Ibuprofen [Advil] 400 - 600 mg PO Q6 PRN #0 tablet 05/31/16 oxyCODONE IR [Oxycodone Ir (*)] 10 mg PO TID #20 tab 05/31/16 Medical Decision Making - Diagnostics EKG Interpretation: EKG: Complete interpretation has been separately recorded in the [employer] archive. Summary impression: Sinus rhythm, rate 83, borderline QT prolongation ED Course/Re-evaluation: The patient presents to the ED with symptoms consistent with recurrent hypokalemia. The patient was placed on a youth nutritional monitor. I-STAT does confirm a potassium of 2.6. The patient received 40 mEq of oral potassium replacement and 20 mEq of IV potassium replacement have been ordered. Patient had serial examinations in the emergency department. Her potassium was rechecked and found to be 4.1. She has had no further vomiting. The patient would like to be discharged home. She will resume her regular dose of potassium supplementation. Differential Diagnosis: Differential diagnosis considered includes hypokalemia, hypomagnesemia, metabolic abnormality, renal failure, arrhythmia - Data Points Laboratory Results: Laboratory Results 12/13/16 08:10 12/13/16 11:37 12/13/16 12/13/16 12/13/16 11:37 10:30 08:10 WBC RBC Hgb POC Hgb Hct POC Hct MCV MCH MCHC RDW Plt Count MPV Neut % (Auto) Lymph % (Auto) [place]al[place] % (Auto) Eos % (Auto) Baso % (Auto) Nucleat RBC Rel Count Absolute Neuts (auto) Absolute Lymphs (auto) Absolute Monos (auto) Absolute Eos (auto) Absolute Basos (auto) Absolute Nucleated RBC Immature Gran % Immature Gran # POC Sodium Sodium 137 mEq/L mEq/L 134 mEq/L mEq/L 133 mEq/L L mEq/L (134-144) (134-144) (134-144) POC Potassium Potassium 4.1 mEq/L mEq/L 5.8 mEq/L H mEq/L 3.2 mEq/L L mEq/L (3.5-5.2) (3.5-5.2) (3.5-5.2) POC Chloride Chloride 95 mEq/L L mEq/L 96 mEq/L L D mEq/L 85 mEq/L L mEq/L (97-110) (97-110) (97-110) Carbon Dioxide 32 mEq/l H mEq/l 28 mEq/l D mEq/l 37 mEq/l H mEq/l (22-31) (22-31) (22-31) Anion Gap 10 mEq/L mEq/L 10 mEq/L mEq/L 11 mEq/L mEq/L (8-16) (8-16) (8-16) POC BUN BUN 9 mg/dL mg/dL 9 mg/dL mg/dL 13 mg/dL mg/dL (7-23) (7-23) (7-23) Creatinine 0.9 mg/dL mg/dL 0.7 mg/dL mg/dL 1.0 mg/dL mg/dL (0.6-1.0) (0.6-1.0) (0.6-1.0) POC Creatinine Estimated GFR > 60 > 60 > 60 Glucose 109 mg/dL H mg/dL 103 mg/dL H mg/dL 103 mg/dL H mg/dL (70-100) (70-100) (70-100) POC Glucose Calcium 8.7 mg/dL mg/dL 7.6 mg/dL L D mg/dL 10.0 mg/dL mg/dL (8.5-10.4) (8.5-10.4) (8.5-10.4) Specimen Hemolysis 450 12/13/16 12/13/16 08:10 08:04 WBC 10.23 10^3/uL H 10^3/uL (3.80-9.50) RBC 5.63 10^6/uL H 10^6/uL (4.18-5.33) Hgb 17.2 g/dL H g/dL (12.6-16.3) POC Hgb 18.0 gm/dL H gm/dL (12.6-16.3) Hct 48.2 % H % (38.0-47.0) POC Hct 53 % H % (38-47) MCV 85.6 fL fL (81.5-99.8) MCH 30.6 pg pg (27.9-34.1) MCHC 35.7 g/dL g/dL (32.4-36.7) RDW 12.7 % % (11.5-15.2) Plt Count 273 10^3/uL 10^3/uL (150-400) MPV 8.3 fL L fL (8.7-11.7) Neut % (Auto) 80.9 % H % (39.3-74.2) Lymph % (Auto) 11.8 % L % (15.0-45.0) Cavalier % (Auto) 6.3 % % (4.5-13.0) Eos % (Auto) 0.3 % L % (0.6-7.6) Baso % (Auto) 0.4 % % (0.3-1.7) Nucleat RBC Rel Count 0.0 % % (0.0-0.2) Absolute Neuts (auto) 8.28 10^3/uL H 10^3/uL (1.70-6.50) Absolute Lymphs (auto) 1.21 10^3/uL 10^3/uL (1.00-3.00) Absolute Monos (auto) 0.64 10^3/uL 10^3/uL (0.30-0.80) Absolute Eos (auto) 0.03 10^3/uL 10^3/uL (0.03-0.40) Absolute Basos (auto) 0.04 10^3/uL 10^3/uL (0.02-0.10) Absolute Nucleated RBC 0.00 10^3/uL 10^3/uL (0-0.01) Immature Gran % 0.3 % % (0.0-1.1) Immature Gran # 0.03 10^3/uL 10^3/uL (0.00-0.10) POC Sodium 133 mEq/L L mEq/L (134-144) Sodium POC Potassium 2.6 mEq/L L* mEq/L (3.3-5.0) Potassium POC Chloride 85 mEq/L L mEq/L (97-110) Chloride Carbon Dioxide Anion Gap POC BUN 11 mg/dL mg/dL (7-23) BUN Creatinine POC Creatinine 1.1 mg/dL H mg/dL (0.6-1.0) Estimated GFR Glucose POC Glucose 107 mg/dL H mg/dL (70-100) Calcium Specimen Hemolysis Medications Given: Discontinued Medications Potassium Chloride (Potassium Cl 10 Meq (Premix)) 100 mls @ 100 mls/hr IV Q1H MORGAN Stop: 12/13/16 10:29 Last Admin: 12/13/16 09:36 Dose: 100 mls Sodium Chloride (Ns) 1,000 mls @ 0 mls/hr IV ONCE ONE PRN Reason: Wide Open Stop: 12/13/16 08:35 Last Admin: 12/13/16 08:38 Dose: 1,000 mls Magnesium Sulfate/Dextrose (Magnesium Sulf 1 Gm (Premix)) 100 mls @ 100 mls/hr IV EDNOW ONE Stop: 12/13/16 09:55 Last Admin: 12/13/16 11:08 Dose: 100 mls Ibuprofen (Motrin) 600 mg PO EDNOW ONE Stop: 12/13/16 12:18 Last Admin: 12/13/16 12:21 Dose: 600 mg Ondansetron HCl (Zofran) 4 mg IVP EDNOW ONE Stop: 12/13/16 08:35 Last Admin: 12/13/16 08:40 Dose: 4 mg Potassium Chloride (Klor Packets) 40 meq PO EDNOW ONE Stop: 12/13/16 08:19 Last Admin: 12/13/16 08:44 Dose: 40 meq Point of Care Test Results: 12/13/16 08:04 POC Sodium 133 L POC Potassium 2.6 L* POC Chloride 85 L POC BUN 11 POC Creatinine 1.1 H POC Glucose 107 H Departure - Departure Disposition: Home, Routine, Self-Care Clinical Impression: Hypokalemia Condition: Good Instructions: Hypokalemia (ED) Additional Instructions: 1. Please return to the emergency department for any worsening symptoms, vomiting or other concerns. 2. Please resume your regular potassium supplementation. 3. Please follow up with your primary care provider as scheduled. Referrals: Lauren Roberts PA [Primary Care Provider] - As per Instructions
--- NOTE | 2016-12-13 08:17 | CPEKG ---
Heart Rate: 83 RR Interval: 723 P-R Interval: 164 QRSD Interval: 76 QT Interval: 416 QTC Interval: 489 P [place]: 71 QRS [place]: 62 T Wave [place]: 80 EKG Severity - BORDERLINE ECG - EKG Impression: SINUS RHYTHM EKG Impression: BORDERLINE T ABNORMALITIES, ANT-LAT LEADS EKG Impression: BORDERLINE PROLONGED QT INTERVAL Electronically Signed By: Joce Burger 13-Dec-2016 09:00:12
[2016-12-13 08:18] LABS: PLATELET COUNT 273 10^3/uL (150-400)
[2016-12-13] MEDS ORDERED: POTASSIUM CL 20 MEQ PKT PO ONE (08:18)
[2016-12-13] MEDS ORDERED: ONDANSETRON 4 MG/2 ML VIAL IVP ONE (08:34)
[2016-12-13] MEDS ORDERED: NS 1,000 ML IV ONE (08:34)
[2016-12-13] MEDS: POTASSIUM Cl (KCl) 100 ML IV SCH ×2 (08:38→09:36)
[2016-12-13] MEDS ORDERED: MAGNESIUM SULF 1 GM/DEXTROSE 100 ML IV ONE (08:56)
[2016-12-13 11:10] VITALS: RESP 16
[2016-12-13] MEDS ORDERED: IBUPROFEN 600 MG TAB PO ONE (12:17)
[2016-12-13 12:40] VITALS: BP 107/74; PULSE 86; O2SAT 94
== END 2016-12-13 12:39 | disposition home or self-care (01) ==
DX: E87.6 Hypokalemia (principal); F17.200 Nicotine dependence, unspecified, uncomplicated; R19.7 Diarrhea, unspecified
CPT/HCPCS: 82947-QW; 96365; J2405; J3475

== ENCOUNTER 2017-03-06 16:30 | Emergency (ER) | payer MEDICAID ==
--- NOTE | 2017-03-06 17:01 | EDPHY ---
General Narrative: CHIEF COMPLAINT: Fall 2 days ago, left rib pain HISTORY OF PRESENT ILLNESS: Patient complains of left anterior rib pain status post fall. She says she was at a [employer] store on Sunday when she tripped and fell. She landed on her left ribs. Denies head strike or loss of conscious. Denies headache or neck pain. No back pain. She complains of a left anterior rib pain just below the breast. She has no generalized chest pain. The pain in the left ribs is worse with inspiration and direct palpation. No abdominal pain. No vomiting. No injury to the arms or legs. No improvement with gzea-jul-cwwaggp medication. Rated as severe. Does not radiate. No other associated complaints or modifying factors. REVIEW OF SYSTEMS: Ten systems reviewed and are negative unless otherwise noted in the HPI PCP: Dr. Yun SPECIALISTS: None PAST MEDICAL HISTORY: PTSD PAST SURGICAL HISTORY: No recent surgeries SOCIAL HISTORY: Daily smoker. Occasional alcohol use. No drug use. Works at [employer] FAMILY HISTORY: Noncontributory EXAMINATION General Appearance: Alert, no distress Head: normocephalic, atraumatic. No Busch sign or raccoon eyes Eyes: Pupils equal and round, no conjunctival pallor or injection ENT, Mouth: Mucous membranes moist. Airway patent Neck: Normal inspection, supple, non-tender Respiratory: Lungs are clear to auscultation. No wheezing, rhonchi or crackles. Splinting with inspiration. No paradoxical movements. Cardiovascular: Regular rate and rhythm. No murmur Gastrointestinal: Abdomen is soft and nondistended Back: non-tender, no bony abnormalities Neurological: A&O, nonfocal, normal gait. Strength is symmetric in all 4 limbs. Skin: Warm and dry, no rash. No petechiae or purpura. No laceration. No abrasion. No hematoma or ecchymosis to the area of pain on the ribs Extremities: Nontender, no pedal edema. Symmetric range of motion Psychiatric: Mood and affect normal DIFFERENTIAL DIAGNOSES: Including but not limited to rib contusion, rib fracture, pneumothorax, hemothorax, pulmonary contusion, intercostal contusion MDM: 4:55 p.m. Left anterior rib pain status post fall 2 days ago. Vital signs are within normal limits with 95% oxygenation on room air. She is in no acute distress. No concern for large pneumothorax clinically by auscultation. Patient is asking for chest x-ray and I have ordered this. She is in no acute distress. 5:20 p.m. X-ray is negative for any acute findings. Vital signs are within normal limits. Treat symptomatic with medications as provided and vwsk-ipp-zsinzhc anti -inflammatories. Follow up with primary care physician. ED precautions discussed. She is comfortable this plan and discharged home stable condition SUPERVISION: This patient was independently evaluated without direct involvement of or examination by the attending physician. - Diagnostics Imaging Results: Imaging Impressions Chest X-Ray 03/06/17 16:57 Impression: Nothing acute identified. Specifically no low left anterior rib fracture identified. - History Smoking Status: Heavy smoker - Objective Vital Signs: Initial Vital Signs Temperature (C) 98.2 F 03/06/17 16:34 Heart Rate 87 03/06/17 16:34 Respiratory Rate 17 03/06/17 16:34 Blood Pressure 92/61 L 03/06/17 16:34 O2 Sat (%) 95 03/06/17 16:34 O2 Delivery Mode Room Air Allergies/Adverse Reactions: Penicillins Allergy (Intermediate, Verified 03/06/17 16:33) Hives Home Medications: Medication Instructions Recorded LORazepam [Ativan (*)] 0.5 mg PO TID 08/26/15 Potassium Cl [Klor-Con 20 meq (*)] 40 meq PO BID 08/26/15 Zolpidem Tartrate [Ambien 5MG (*)] 10 mg PO HS 08/26/15 risperiDONE [Risperdal 1mg (*)] 2 mg PO BID 08/26/15 Benztropine Mesylate [Cogentin] 3 mg PO HS 05/30/16 Methadone HCl 40 mg PO HS 05/30/16 QUEtiapine FUMARATE [Seroquel 100 300 mg PO HS 05/30/16 mg (*)] Quetiapine Fumarate [Seroquel Xr] 300 mg PO HS 05/30/16 Ibuprofen [Advil] 400 - 600 mg PO Q6 PRN #0 tablet 05/31/16 oxyCODONE IR [Oxycodone Ir (*)] 10 mg PO TID #20 tab 05/31/16 Cyclobenzaprine [Flexeril 10 MG 10 mg PO TID PRN #7 tab 03/06/17 (*)] oxyCODONE HCL/ACETAMINOPHEN 1 each PO Q4-6PRN PRN #7 tablet 03/06/17 [Percocet 5-325 mg Tablet] Departure - Departure Disposition: Home, Routine, Self-Care Clinical Impression: Contusion of rib on left side Qualifiers: Encounter type: initial encounter Qualified Code(s): S20.212A - Contusion of left front wall of thorax, initial encounter Condition: Good Instructions: Rib Contusion (ED) Additional Instructions: 1. Continue pskd-npd-qomgzey ibuprofen 600 mg every 8 hr for the next 3-5 days and stop 2. Medications as prescribed as needed 3. Follow up with primary care physician 4. ED precautions as discussed Referrals: BARB YUN [Non Staff Provider ()] - As per Instructions Stand Alone Forms: Work Excuse Prescriptions: Cyclobenzaprine [Flexeril 10 MG (*)] 10 mg PO TID PRN #7 tab PRN Reason: Spasms oxyCODONE HCL/ACETAMINOPHEN [Percocet 5-325 mg Tablet] 1 each PO Q4-6PRN PRN #7 tablet PRN Reason: Pain, Breakthrough
[2017-03-06 17:28] VITALS: BP 135/70; PULSE 61; RESP 16; TEMP 98.6; O2SAT 98
== END 2017-03-06 17:33 | disposition home or self-care (01) ==
DX: S20.212A Contusion of left front wall of thorax, initial encounter (principal); F17.200 Nicotine dependence, unspecified, uncomplicated; W01.0XXA Fall on same level from slipping, tripping and stumbling without subsequent striking against object, initial encounter

== ENCOUNTER 2017-03-08 08:41 | Emergency (ER) | payer MEDICAID ==
[2017-03-08 08:46] VITALS: BP 104/74; PULSE 94; RESP 16; TEMP 98.6; O2SAT 96
--- NOTE | 2017-03-08 08:59 | EDPHY ---
H & P Stated Complaint: L Rib Zzjk-qtdkzwnkx-jymh 4 days ago. Increasing pain. Time Seen by Provider: 03/08/17 08:58 HPI/ROS: HPI: This is a 41-year-old female who presents with Chief Complaint: L Rib Huni-hjhmlcjtw-myyi 4 days ago. Increasing pain. Location: Left rib Quality: Pain Duration: 4 days ago Signs and Symptoms: No fever, no cough, no shortness of breath, no abdominal pain, no nausea, no vomiting Timing: Worsened with inspiration Severity: 10 out 10 Context: Patient has a history of chronic pain, tobacco use presents for the 2nd time to the emergency room with complaints of continued left lower anterior rib pain status post accidental fall while walking out of [employer] 4 days ago. She denies hitting her head/headache/dizziness/neck pain/neck injury. She was giving Flexeril and Percocet for which she reports she had almost complete pain relief the. She has now run out of her medications this morning and is requesting more as she has no primary care provider. She does admit after further questioning to going to [facility] but only on an as-needed basis. Eating and drinking normally Modifying Factors: See above Comment: ROS: see HPI Constitutional: No fever, no chills, no weight loss Eyes: No blurred vision Respiratory: No shortness of breath, no cough Cardiovascular: No chest pain Gastrointestinal: No nausea, no vomiting, no diarrhea Genitourinary: No dysuria Extremities: No myalgias Neurologic: No weakness, no numbness Skin: No rashes Hematologic: No bruising, no bleeding MEDICAL/SURGICAL/SOCIAL HISTORY: Medical history: anxiety, depression, low potassium, PTSD, Bipolar, bulimia, chronic pain, PNA, tobacco user. Surgical history: Denies Social history: employed CONSTITUTIONAL: Smells heavily of tobacco smoke, adult white female who appears older than stated age, awake and alert, no obvious distress HEENT: Atraumatic and normocephalic, PERRL, EOMI. Tympanic membranes clear. Oropharynx clear, no exudate and moist pink mucosa. Airway patent. No lymphadenopathy. No meningismus. Cardiovascular: Normal S1/S2, regular rate, regular rhythm, without murmur rub or gallop. PULMONARY/CHEST: Symmetrical, tenderness left lower anterior rib; no crepitus; no ecchymosis. Clear to auscultation bilaterally. Good air movement. No accessory muscle usage. ABDOMEN: Soft, nondistended, nontender, no rebound, no guarding, no peritoneal signs, no masses or organomegaly. No CVAT. EXTREMITIES: 2/2 pulses, strength 5/5, no deformities, no clubbing, no cyanosis or edema. NEUROLOGICAL: no focal neuro deficits. GCS 15. SKIN: Warm and dry, no erythema. no rash. Good capillary refill. Source: Patient Exam Limitations: No limitations - Personal History LMP (Females 10-55): Unknown Current Tetanus/Diphtheria Vaccine: Yes Current Tetanus Diphtheria and Acellular Pertussis (TDAP): Yes Tetanus Vaccine Date: 2008 - Medical/Surgical History Hx Asthma: No Hx Chronic Respiratory Disease: No Hx Diabetes: No Hx Cardiac Disease: No Hx Renal Disease: No Hx Cirrhosis: No Hx Alcoholism: No Hx HIV/AIDS: No Hx Splenectomy or Spleen Trauma: No Other PMH: anxiety, depression, low potassium. tubal ligation, PTSD, BIPolar, bulemia, chronic pain. PNA. - Social History Smoking Status: Heavy smoker Constitutional: Initial Vital Signs Temperature (C) 37.0 C 03/08/17 08:44 Heart Rate 94 03/08/17 08:44 Respiratory Rate 16 03/08/17 08:44 Blood Pressure 104/74 03/08/17 08:44 O2 Sat (%) 96 03/08/17 08:44 O2 Delivery Mode Room Air Allergies/Adverse Reactions: Penicillins Allergy (Intermediate, Verified 03/08/17 08:46) Hives Home Medications: Medication Instructions Recorded LORazepam [Ativan (*)] 0.5 mg PO TID 08/26/15 Potassium Cl [Klor-Con 20 meq (*)] 40 meq PO BID 08/26/15 Zolpidem Tartrate [Ambien 5MG (*)] 10 mg PO HS 08/26/15 risperiDONE [Risperdal 1mg (*)] 2 mg PO BID 08/26/15 Benztropine Mesylate [Cogentin] 3 mg PO HS 05/30/16 Methadone HCl 40 mg PO HS 05/30/16 QUEtiapine FUMARATE [Seroquel 100 300 mg PO HS 05/30/16 mg (*)] Quetiapine Fumarate [Seroquel Xr] 300 mg PO HS 05/30/16 Ibuprofen [Advil] 400 - 600 mg PO Q6 PRN #0 tablet 05/31/16 Cyclobenzaprine [Flexeril 10 MG 10 mg PO TID PRN #7 tab 03/06/17 (*)] Lidocaine 5% [Lidoderm 5% Patch 1 ea TD DAILY #7 patch 03/08/17 (*)] Polyethylene Glycol 3350 [Miralax 17 gm PO DAILY #20 pkt 03/08/17 17 gm (*)] traMADol [Ultram 50 mg (*)] 50 mg PO Q4 PRN #10 tab 03/08/17 Medical Decision Making - Diagnostics Imaging Results: Imaging Impressions Ribs w/Chest X-Ray 03/08/17 09:05 Impression: 1. Negative left rib series. 2. Blunting of the left costophrenic angle that could represent small left effusion and/or atelectasis has developed. ED Course/Re-evaluation: Chest x-ray and rib series ordered, Lidoderm patch, Percocet given No signs of hypoxia/respiratory distress/wheezing Rib x-ray my read shows stool in the left upper quadrant; no rib fracture; no pneumothorax; no pneumonia Patient reports that she has chronic constipation and feels bloated. Start MiraLax daily. The patient asking for a refill of Percocet; I advised I would feel comfortable prescribing Lidoderm patches and a small quantity of tramadol. No signs of neurovascular compromise/tenting of skin/compartment syndrome/ extremities and joints examined above and below area of concern and are neurovascularly intact. This patient was seen under the supervision of my secondary supervising physician. I evaluated care for this patient independently. Differential Diagnosis: Differential diagnosis includes but is not limited to rib contusion, intra- abdominal injury, rib fracture, chronic pain, contusion. - Data Points Medications Given: Lidocaine (Lidoderm 5%) 1 ea TD DAILY MORGAN Stop: 09/04/17 09:14 Last Admin: 03/08/17 09:18 Dose: 1 ea Discontinued Medications Oxycodone/Acetaminophen (Percocet 5/325) 1 tab PO EDNOW ONE Stop: 03/08/17 09:07 Last Admin: 03/08/17 09:18 Dose: 1 tab Departure - Departure Disposition: Home, Routine, Self-Care Clinical Impression: Atelectasis, left Contusion of rib on left side Qualifiers: Encounter type: initial encounter Qualified Code(s): S20.212A - Contusion of left front wall of thorax, initial encounter Condition: Good Instructions: Rib Contusion (ED), Atelectasis (ED) Additional Instructions: Refrain from smoking for the next several days and stop totally if able. Please drink lots of fluids to prevent dehydration and loosen mucous. Take MiraLax daily for the next 3 days only. Apply Lidoderm patch to the area of discomfort. Use Tramadol sparingly and only use for severe breakthrough pain. Do not take Tramadol and Flexeril at the same time. Referrals: [facility],. [Primary Care Provider] - 3-4 days, if not improved Prescriptions: Lidocaine 5% [Lidoderm 5% Patch (*)] 1 ea TD DAILY #7 patch Polyethylene Glycol 3350 [Miralax 17 gm (*)] 17 gm PO DAILY #20 pkt traMADol [Ultram 50 mg (*)] 50 mg PO Q4 PRN #10 tab PRN Reason: Pain, Breakthrough
[2017-03-08] MEDS ORDERED: OXYCODONE/APAP 5/325 TAB PO ONE (09:06)
[2017-03-08] MEDS ORDERED: LIDOCAINE 5% 1 EA PATCH TD SCH (09:15)
[2017-03-08] MEDS ORDERED: PATCH REMOVAL 1 EA PATCH TD SCH (21:00)
== END 2017-03-08 09:42 | disposition home or self-care (01) ==
DX: S20.212D Contusion of left front wall of thorax, subsequent encounter (principal); J98.11 Atelectasis; F17.200 Nicotine dependence, unspecified, uncomplicated; W18.09XD Striking against other object with subsequent fall, subsequent encounter